=== PATIENT | female | born 1940 | race Caucasian/White ===

== ENCOUNTER 2019-09-13 10:16 | Outpatient (CLI) | payer MEDICARE, OTHER ==
--- NOTE | 2019-09-13 12:15 | RAD ---
RADIOGRAPH RIGHT FOOT 3 VIEWS: DATE: 09/13/2019. HISTORY: A 79-year-old female with right foot pain. FINDINGS: No evidence of acute fracture. No dislocation. At 1st MTP, severe joint space narrowing, with moderate sclerosis and mild osteophytosis. Focal soft tissue calcification just medial to the 2nd DIP. No high-grade DJD in the rest of the joints. Mild chronic subluxations at the 4th PIP and 4th DIP. No destructive osseous lesion. 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 POS: JIN
--- NOTE | 2019-09-13 12:16 | RAD ---
RADIOGRAPH LEFT FOOT 3 VIEWS: DATE: 09/13/2019. HISTORY: A 79-year-old female with left foot pain. FINDINGS: At 1st MTP, there is severe joint space narrowing, multiple prominent subchondral cysts, moderate scl erosis, and only mild osteophytosis. There is also inferior subluxation of the 1st proximal phalanx relative to the 1st metatarsal head. No high-grade DJD at the rest of the joints. There is no periostitis or destructive osseous lesion. No acute fracture. IMPRESSION: Somewhat severe osteoarthrosis of the 1st metatarsophalangeal joint, including chronic subluxation. POS: JIN
== END 2019-09-13 10:17 | disposition home or self-care (01) ==
LOC: BICRAD 10:16
PROVIDERS: ATTEND Internal Medicine Rheumatology
DX: M79.671 Pain in right foot (principal); M79.672 Pain in left foot; M19.072 Primary osteoarthritis, left ankle and foot; M19.071 Primary osteoarthritis, right ankle and foot; M24.475 Recurrent dislocation, left foot